=== PATIENT | male | born 1975 | race Caucasian/White ===

== ENCOUNTER 2018-03-23 16:05 | Emergency (ER) | payer SELFPAY ==
[~2018-03-23] VITALS: Ht 175.3 cm; Wt 93.0 kg
[2018-03-23 16:10] VITALS: BP 162/102; Ht 175.3 cm; Wt 93.0 kg
== END 2018-03-23 18:26 | disposition left against medical advice (07) ==
LOC: ED 16:05
DX: Z53.21 Procedure and treatment not carried out due to patient leaving prior to being seen by health care provider (principal)